=== PATIENT | female | born 1990 | race Caucasian/White ===

== ENCOUNTER 2023-07-24 09:40 | Emergency (ER) | payer BC, SELFPAY ==
--- NOTE | 2023-07-24 09:44 | ED.GENADUL_ITS ---
Discharge Plan Disposition Patient Disposition: Home Condition: Good Discharge Details Clinical Impression: Anxiety, Abdominal pain Primary Care Provider: None,None ED Provider: Alyson Mueller Home Meds and New Rx's Prescriptions: New ondansetron 8 mg tablet,disintegrating 8 mg PO Q8H PRN (Reason: nausea and vomiting) Qty: 14 0RF Discharge Instructions Instructions: Abdominal Pain (ED), Anxiety (ED) Additional Instructions: Follow-up with your doctors as instructed. [facility] will be calling you for follow-up. You should be checking in with emergency services once a day for the next 5 days. Take the Zofran as needed for nausea. Try a hot pack on your belly as needed. Return to ED for fever of 100.4 or above, any other concerns. Medical Decision Making Medical Records Medical records reviewed: Yes I reviewed the patient's medical records. Medical records narrative: Patient's test results were all unremarkable except for mildly decreased potassium which was repleted. She has Valium at home that was given to her by [facility] for anxiety. I did give her some Zofran as needed for nausea. She was seen by psychiatry who spent a long time with her. She will follow-up with [facility] this week and they will arrange for both counseling and medication therapy for her. She will return to the ED for fever, localized pain, thoughts of hurting herself or others. Imaging Data Radiologic Study: Imaging: X-Ray Radiologist's impression: CXR: NAD Lab Data Lab results reviewed: Yes I reviewed the patient's lab results. Lab results narrative: Patient's urinalysis shows a normal specific gravity, 40 ketones, and negative glucose. UDS is positive for benzos and THC. Remainder of UDS, ASA, APAP, and EtOH negative. Patient is comprehensive panel reveals a potassium of 3.1, anion gap of 12, glucose of 110, and remainder normal. HPI General Date/Time Provider Initiated Documentation: 07/24/23 09:44 . HPI Narrative: This 33-year-old female patient presents with a chief complaint of anxiety and left-sided flank pain. Patient reports that she has had the left flank pain radiating into her left lower quadrant for about 3 weeks. She has been to [facility] [place] times and [facility] 3 times over the past 3 weeks. She has had multiple CT scans, transvaginal ultrasounds, and cystoscopy. She was treated for PID although her cultures and transvaginal ultrasounds were negative. She says she has not completed the doxycycline and metronidazole and did stop these due to the negative cultures. The cystoscopy was done due to some hematuria and this was normal. Her CT scans have been essentially unremarkable (see below). She tells me that she wakes up in the morning with the flank pain going into her left lower quadrant which then makes her double over with cramping in her entire abdomen. It seems like it is most severe in the morning but does continue off and on throughout the day. There is nothing really that brings it on or makes it better or worse. She was at one time given Dilaudid and says that she was g iven Valium last night at [facility]. She did have lab evaluation as well as CT scan last night at [facility]. The patient does have a history of generalized anxiety and conversion disorder. The conversion disorder was diagnosed when she was in high school and had a lot of stress. She says her stress right now is day-to-day stress. She does feel more anxious due to the fact that she feels like she is compromising her and children with this pain. Of note, the CT abdomen and pelvis done yesterday showed mild hyperenhancement of the nondistended terminal ileum on the R without stranding or surrounding inflammatory change. This was of unknown clinical significance though underlying inflammatory bowel disease or infectious process is not excluded. Patient has been referred to a supervisor enrobing. There is no evidence of left nephrolithiasis. There is diverticulosis without acuity. The patient has also seen both urology and [facility] [employer] [employer] [facility] over the past several weeks. She denies fever or rigors. She has had a little bit of loose stool. She has vomited rarely. She is tearful and anxious on arrival. Related Data Home Medications Medication Instructions Recorded Confirmed ondansetron 8 mg disintegrating 8 mg PO Q8H PRN nausea and 07/24/23 tablet vomiting #14 tabs Previous Rx's Medication Instructions Recorded ondansetron 8 mg disintegrating 8 mg PO Q8H PRN nausea and 07/24/23 tablet vomiting #14 tabs Allergies Allergy/AdvReac Type Severity Reaction Status Date / Time No Known Drug Allergies Allergy Verified 07/24/23 12:22 Review of Systems Constitutional Constitutional: Denies chills, Denies fever(s), Denies headache(s) and Denies weakness Eyes Eyes: Denies diplopia and Reports other (no redness) ENT Ears, Nose, Mouth, and Throat: Denies otalgia, Denies headache(s), Denies nasal congestion, Denies nasal discharge, Denies neck pain and Denies sore throat Cardiovascular Cardiovascular: Denies chest pain, Denies palpitations and Denies dyspnea Respiratory Respiratory: Denies cough and Denies dyspnea Gastrointestinal Gastrointestinal: Reports abdominal pain, Reports diarrhea, Reports nausea and Reports vomiting Genitourinary Genitourinary: Denies dysuria and Reports other (Has had left flank pain) Musculoskeletal Musculoskeletal: Denies myalgias, Denies muscle weakness, Denies neck pain, Denies numbness and Reports other (edema) Integumentary/Breasts Skin/Breast: Denies change in pigmentation and Denies rash Neurologic Neurologic: Denies headache(s), Denies numbness and Denies weakness Psychiatric Psychiatric: Reports anxiety Endocrine Endocrine: Denies palpitations PFSH All Active Problems (Updated 07/24/23 @ 12:18 by Alyson Mueller MD) Abdominal pain (Acute) Anxiety (Chronic) Social History Smoking/Tobacco Use Status: Never Smoking risk assessment performed?: Yes Drug use: Occasionally Substance use type: marijuana Housing: apartment Do you feel safe at home: Yes Do you feel safe in your relationship?: Yes Additional Social history: lived with and 6yo son - [place] 07/24/23 Exam Const General: no acute distress, well developed, well groomed and not in acute distress Nutritional Appearance: well nourished Orientation: alert and oriented x3 HENMT Head: normocephalic and atraumatic Ears: external ears normal Mouth: oropharynx normal and moist mucous membranes Throat: posterior oropharynx normal Eyes Conjunctivae: conjunctivae normal Neck Neck: full ROM and supple Chest Chest: normal inspection of the chest Resp Effort & Inspection: normal respiratory effort Auscultation: clear to auscultation bilaterally Cardio Rate: regular rate Rhythm: regular rhythm Heart Sounds: no murmurs and no rubs GI Inspection: normal to inspection Palpation: soft, nontender and other (non distended) Auscultation: normal bowel sounds General: other ( No CVA TTP) Skin General skin exam: no rashes or lesions noted and other (pink, warm, dry) Neuro General: patient alert, patient awake and patient oriented x3 Speech: speech normal Motor: other (ROSAS) Sensory Exam: no sensory deficits noted Extrem General: normal to inspection, full ROM and pedal edema present Psych Mental Status: mental status grossly normal Speech and Movement: speech and movement normal Affect: normal affect
[2023-07-24 09:46] VITALS: BP 170/124; PULSE 92; RESP 20; O2SAT 98
[2023-07-24 09:53] VITALS: RESP 20
--- NOTE | 2023-07-24 10:00 | DI.RAD_ITS ---
Exam(s) XR CHEST 2V PA LATERAL EXAM: XR CHEST 2V PA LATERAL CLINICAL HISTORY: L flank pain. TECHNIQUE: 2D digital imaging was performed. COMPARISON: No exams were available for comparison FINDINGS: 2 views: Heart size is normal. The mediastinum is not widened. Lungs are clear. No infiltrates nor pleural effusions. IMPRESSION: No acute pulmonary findings. DATA REPOSITORY: RADIATION DOSE DELIVERED:
--- NOTE | 2023-07-24 10:06 | NUR.NOTE ---
Accessed Pts chart in [facility] for her ER notes from yesterdays visit, per Dr Mueller
[2023-07-24] MEDS: LORazepam 1 MG TAB PO (10:24)
--- NOTE | 2023-07-24 10:44 | DI.VRAD_ITS ---
PROCEDURE INFORMATION: Exam: XR Chest Exam date and time: 07/24/2023 10:34 AM Age: 33 years old Clinical indication: Left-sided and other: Left falnk pain TECHNIQUE: Imaging protocol: Radiologic exam of the chest. Views: 2 views. COMPARISON: No relevant prior studies available. FINDINGS: Lungs: No focal consolidation seen. Pleural spaces: No large pleural effusion seen. Heart/Mediastinum: No cardiomegaly. Bones/joints: Grossly unremarkable. IMPRESSION: No acute findings to explain reported symptoms. Dictated and Authenticated by: Tosha Acevedo MD. Ordering:ROC Shields MD
[2023-07-24 10:50] LABS: Bilirubin Negative (Negative); Blood Trace-intact (Negative); Clarity Sl Cloudy (Clear); Glucose Negative (Negative); Ketones 40 mg/dL (Negative); Leukocyte Esterase Negative (Negative); Nitrite Negative (Negative); Urobilinogen 0.2 mg/dL (Up to 0.2); pH 8.5 (5-8)
[2023-07-24 10:51] VITALS: BP 170/124; PULSE 92; RESP 20; O2SAT 98
[2023-07-24 10:56] LABS: Abs Immature Grans 0.01 10^3/uL (0.0-0.06); Absolute Basophil Count 0.02 10^3/uL (0.0-0.2); Absolute Eosinophil Count 0.02 10^3/uL (0.0-0.7); Absolute Lymphocyte Count 1.63 10^3/uL (1.2-3.4); Absolute Monocyte Count 0.34 10^3/uL (0.1-0.8); Absolute Neutrophil Count 6.19 10^3/uL (1.2-6.7); Basophils % 0.2; Eosinophils % 0.2; HCT 37.1 % (36.0-46.0); HGB 12.6 g/dL (11.2-15.7); Immature Grans % 0.1; Lymphocytes % 19.9; MCV 91 fL (80-95); MPV 8.5 fL (8.0-11.0); Monocytes % 4.1; Neutrophils % 75.5; Platelet Count 340 10^3/uL (130-400); RBC 4.07 10^6/uL (3.93-5.22); RDW 12.9 % (11.7-14.6); RDW-SD 43.1 fL; WBC 8.21 10^3/uL (4.4-10.8)
[2023-07-24 10:59] LABS: *AMPHETAMINES SCREEN URINE Negative (Negative); *BARBITURATES SCREEN URINE Negative (Negative); *BENZODIAZEPINES SCREEN URINE Positive (Negative); Cannabinoids THC Positive (Negative); Cocaine Screen,Urine Negative (Negative); METHADONE URINE SCREEN Negative (Negative); OPIATES URINE SCREEN Negative (Negative)
[2023-07-24 11:02] LABS: Tricyclic Antidepressants Negative (Negative)
[2023-07-24 11:07] LABS: Bacteria Few HPF (Negative); Casts Negative LPF (Negative); Crystals Many Amorphous HPF (Negative); Epithelial Cells Many HPF (Negative); Mucus Negative (Negative); WBC 0-2 HPF (0-5)
[2023-07-24 11:08] LABS: C & S Indicated? No/Sq. Contamination
[2023-07-24 11:10] LABS: ALT 39 U/L (14-59); AST 18 U/L (15-37); Albumin 3.8 g/dL (3.4-5.0); Alkaline Phosphatase 56 U/L (46-116); Anion Gap 11.6 mmol/L (3-11); BUN 4 mg/dL (7-18); Bilirubin, Total 0.5 mg/dL (0.2-1.0); CO2 25.4 mmol/L (21.0-32.0); CREATININE 0.6 mg/dL (0.55-1.02); Chloride 107 mmol/L (98-107); Estimated GFR 120.72 (mL/min/1.73m2); Glucose 110 mg/dL (74-106); Potassium 3.1 mmol/L (3.5-5.1); Sodium 144 mmol/L (136-145); Total Protein 6.9 g/dL (6.4-8.2)
[2023-07-24 11:13] LABS: ETHANOL BLOOD < 3.0 mg/dL (<10)
[2023-07-24 11:22] LABS: Lipase 32 U/L (16-77)
[2023-07-24 11:25] LABS: Acetaminophen < 2 ug/mL (10-30); Salicylate < 2.8 mg/dL (<2.8)
[2023-07-24] MEDS: Potassium Chloride 20 MEQ TABCR 40 MEQ PO (12:18)
[2023-07-24 12:31] VITALS: BP 140/90
--- NOTE | 2023-07-25 00:50 | PDOC.MHCN ---
Date of service: 07/24/23 Time of Service: 11:00 PHQ-9 Over the last 2 weeks, how often have you been bothered by any of the following problems? 1. Little interest or pleasure in doing things: several days 2. Feeling down, depressed, or hopeless: several days 3. Trouble falling or staying asleep, or sleeping too much: several days 4. Feeling tired or having little energy: several days 5. Poor appetite or overeating: several days 6. Feeling bad about yourself - or that you are a failure or have let yourself and your family down: several days 7. Trouble concentrating on things, such as reading the newspaper or watching television: several days 8. Moving or speaking so slowly that other people could have noticed? - Or the opposite - being so fidgety or restless that you have been moving around a lot more than usual: not at all 9. Thoughts that you would be better off or of hurting yourself in some way: not at all Total score: 7 Source: Developed by Drs. Tien Rivera, Daylin Boyd, Tawanda Velez and colleagues, with an educational braden from [employer]. Suicide Severity Rate CSSRS Have you wished you were or wished you could go to sleep and not wake up?: No Have you actually had any thoughts of killing yourself?: No CSSRS2 Have you been thinking about how you might do this?: No Have you had these thoughts and had some intention of acting on them?: No Have you started to work out or worked out the details of how to kill yourself? Do you intend to carry out this plan?: No CSSRS3 Have you ever done anything, started to do anything or prepared to do anything to end your life?: No CSSRS4 Was this within the past three months?: No Screening Score Total Score: 0 Screening: Negative Mental Health Emergency Note Release [facility] release signed:: Yes Reason for Visit Physical pain In the last 2 weeks has the pt presented for ES prior to today?: Yes, presented at Client Information Well Housed: Yes Non Suicidal Self Injury Current: No History: No Safety Risk/Harm to Self or Others Current Ideation to Harm Self or Others: No Risk: Does risk to harm exist?: No Risk: Low Risk Duty to warn indicated: No Asssessment/Mental Status Appearance: Unremarkable Attitude: Cooperative Behavior: Agitated and Repetitive movements Speech: Soft Affect: Cogruent with mood Mood: Sad, Stressed and Anxious Thought process: Unremarkable Hallucinations: No Delusions: No Attention: Unremarkable Perception: Not impaired Orientation: Fully orientated Memory: Intact Insight: Fair Judgement: Fair Neurovegetative Symptoms Sleep: Decrease Appetitie: Decrease Interests: Decrease Energy: Decrease Libido: Not applicable Substance Use: Other Drug Issues: Other Do you use nicotine?: No Have you used substances in the last 7 days?: yes, [id number] Additional Issues: Assaultive/Threatening Behavior: No Medical Concerns: Yes Client engaged in active self harm w/weapon: No Threatening to run away: No Child reported abuse/neglect: No Voluntarily presenting for services: Yes Domestic violence is a concern: No Extreme Psychosis or extreme behavior is present: No Impression Client presents with extreme physical pain but it may be due to hyperchodriaism Plan/Disposition Recommended Disposition: PCP/Office visit and Therapy. Plan: Referred for therapy Person reported agreement to plan: Yes Reports/communication Outcome discussed with: ED/Personnel
== END 2023-07-24 12:33 | disposition home or self-care (01) ==
PROVIDERS: Emergency Provider Emergency Medicine
DX: R10.9 Unspecified abdominal pain (principal); R41.9 Unspecified symptoms and signs involving cognitive functions and awareness; E87.6 Hypokalemia; R11.2 Nausea with vomiting, unspecified
CPT/HCPCS: 00123; 80053; 80307; 83690; 96127; 99283; 71046; 80320; 80329; 81003; 81015; 85025